=== PATIENT | male | born 1960 | race Caucasian/White ===

== ENCOUNTER 2016-08-13 15:03 | Emergency (ER) | payer OTHER ==
--- NOTE | ~2016-08-13 | EKG ---
PATIENT: ENEDINA VANESSA UNIT #: [id number] Ventricular Rate: 83 BPM Atrial Rate: 83 BPM P-R Interval: 152 ms QRS Duration: 78 ms Q-T Interval: 372 ms QTC Calculation(Bezet): 437 ms P Gilbert: 50 degrees Calculated R Gilbert: 70 degrees Calculated T Gilbert: 52 degrees Diagnosis Line: Normal sinus rhythm Diagnosis Line: Normal ECG Diagnosis Line: When compared with ECG of 29-DEC-2015 19:35, Diagnosis Line: Nonspecific T wave abnormality no longer evident Diagnosis Line: in Inferior leads Diagnosis Line: Confirmed by BOYD SHANKS MD ([id number]) on Diagnosis Line: 08/14/2016 8:01:18 AM INTERPRETING MD: RIMMA RODRIGUEZ
--- NOTE | ~2016-08-13 | CR72 ---
[facility] A Service of [facility] RADIOLOGY TEXT RESULTS PATIENT: ENEDINA VANESSA LOCATION: [facility] : 62 UNIT #: [id number] AGE: [address]: Maryana Bowser MD SEX: M ORDER DR: [id number] [facility]. [place], [place] [address] [id number] E MR#: [id number] Acc #: [id number] NAME: ENEDINA VANESSA : 1960 SEX: M STUDY DATE/TIME: 08/13/2016 17:41 UNIT: [facility] ROOM: STUDY DESCRIPTION: CR Chest Single View Portable Attending Physician: Maryana Bowser M.D. Ordering Physician: Maryana Bowser M.D. MEDICAL IMAGING REPORT This report is preliminary unless electronic signature is present EXAM Frontal chest 08/13/2016 INDICATIONS 56-year-old female with cough, shortness of air and congestion for 2.5 weeks. Long-term tobacco abuse for 30 years. TECHNIQUE 2 frontal chest. COMPARISON STUDIES 01/16/2016. FINDINGS Cardiac silhouette unremarkable. The vascularity is normal. Lungs are clear. No pneumothorax. Minimal atelectasis or scar associated with a minor fissure. IMPRESSION 1. Negative frontal chest. Improved appearance compared 01/16/2016. Dictated by... Jimenez Gaines M.D. THIS IS AN ELECTRONICALLY VERIFIED REPORT Jimenez Gaines M.D. at 08/13/2016 11:39 PM RANDALL/alexandra TD: 08/13/2016 21:36 JOB #: [id number] [facility] A Service [facility] RADIOLOGY TEXT RESULTS PATIENT: ENEDINA VANESSA LOCATION: [facility] : 62 UNIT #: [id number] AGE: [address]: Maryana Bowser MD SEX: M ORDER DR: MEDICAL IMAGING REPORT Page 1 of 1 COPY
[~2016-08-13 15:03] MED LIST: FERROUS GLUCON324 MG PO; NICOTINE TRANSD21 MG EXT; NO MEDICATIONS; ROXICODONE5 MG PO; ZYVOX600 MG PO
== END 2016-08-13 18:23 | disposition home or self-care (01) ==
LOC: CED 15:03
DX: J18.9 Pneumonia, unspecified organism (principal); J20.9 Acute bronchitis, unspecified; F17.210 Nicotine dependence, cigarettes, uncomplicated
CPT/HCPCS: 36415; 71010; 93005; 94640; 99284

== ENCOUNTER 2016-09-28 20:54 | Emergency (ER) | payer OTHER ==
[~2016-09-28] VITALS: Ht 177.8 cm; Wt 68.0 kg
--- NOTE | ~2016-09-28 | CT16 ---
[facility] A Service of [facility] RADIOLOGY TEXT RESULTS PATIENT: ENEDINA VANESSA LOCATION: [facility] : 62 UNIT #: [id number] AGE: [address]: FRANKY SERRATO APRN SEX: M ORDER DR: [id number] [facility] [address] [place], [place] [address] [id number] E MR#: [id number] Acc #: [id number] NAME: ENEDINA VANESSA : 1960 SEX: M STUDY DATE/TIME: 09/29/2016 2:26 UNIT: [facility] ROOM: STUDY DESCRIPTION: CT Angio Chest for PE Attending Physician: Franky Serrato Aprn Ordering Physician: Franky Serrato Aprn Primary Care Physician: No Primary Care Physician MEDICAL IMAGING REPORT This report is preliminary unless electronic signature is present EXAM CT chest with contrast, pulmonary arteriography protocol, 09/29/2016. HISTORY 56-year-old male in the ED complaining of 1-week history of right-side chest and rib pain. He has a history of right-side empyema treated with chest tube drainage December and January 2016. TECHNIQUE CT examination of the chest with IV contrast using pulmonary arteriography protocol. CTA MIP images of the pulmonary arteries were reformatted in multiple planes. This CT exam was performed with one or more of the following radiation dose reduction techniques: automatic exposure control, adjustment of mA and/or kV according to patient size, and iterative reconstruction. COMPARISON CT chest, 12/29/2015. FINDINGS No pulmonary embolism is demonstrated. Thoracic aorta is normal in caliber with no aneurysm or dissection. The heart size is normal and there is no pericardial effusion. The lungs are expanded and clear today. Minimal subpleural pulmonary scarring deep to a healed right lateral sixth rib fracture. No other chest wall abnormality is seen. There is no pleural effusion. Limited upper abdominal images are unremarkable. IMPRESSION 1. No acute abnormality within the chest. No evidence of pulmonary embolism. 2. The lungs are expanded and clear today. No pleural effusion. [facility] A Service of [facility] RADIOLOGY TEXT RESULTS PATIENT: ENEDINA VANESSA LOCATION: [facility] : 62 UNIT #: [id number] AGE: [address]: FRANKY SERRATO APRN SEX: M ORDER DR: 3. Mild subpleural pulmonary scarring in the right lateral mid chest deep to a healed sixth rib fracture. Dictated by... Darren Smiley M.D. THIS IS AN ELECTRONICALLY VERIFIED REPORT Darren Smiley M.D. at 09/29/2016 4:47 PM LONDON/sanam TD: 09/29/2016 12:00 JOB #: [id number] MEDICAL IMAGING REPORT Page 1 of 1 COPY
--- NOTE | ~2016-09-28 | CR63 ---
[facility] A Service of [facility] RADIOLOGY TEXT RESULTS PATIENT: ENEDINA VANESSA LOCATION: [facility] : 62 UNIT #: [id number] AGE: [address]: FRANKY SERRATO APRN SEX: M ORDER DR: [id number] [facility] [address] [place], [place] [address] [id number] E MR#: [id number] Acc #: [id number] NAME: ENEDINA VANESSA : 1960 SEX: M STUDY DATE/TIME: 09/28/2016 23:32 UNIT: [facility] ROOM: STUDY DESCRIPTION: CR Chest 2 View Attending Physician: Franky Serrato Aprn Ordering Physician: Franky Serrato Aprn Primary Care Physician: Primary Care Physician No MEDICAL IMAGING REPORT This report is preliminary unless electronic signature is present EXAM Chest x-ray, 09/28/2016 HISTORY 56-year-old male in the ED complaining of 2-week history of shortness of air and cough. He notes some right rib pain. Right thoracotomy in 2016. TECHNIQUE AP and lateral upright chest series. FINDINGS The exam shows no active disease in the chest. Linear scarring right lateral midlung likely related to the patient's right lung surgery in 2016. The lungs are clear. Mild pleural scarring in the right costophrenic angle. No visible pneumothorax or pleural effusion. Heart size normal. No change since 08/13/2016. IMPRESSION No active disease. Dictated by... Darren Smiley M.D. THIS IS AN ELECTRONICALLY VERIFIED REPORT Darren Smiley M.D. at 09/29/2016 4:46 PM LONDON/jeancarlos TD: 09/29/2016 10:58 JOB #: [id number] MEDICAL IMAGING REPORT Page 1 of 1 COPY
[2016-09-29 00:39] LABS: BASOPHIL# 0.1 X10e3 (0-0.3); BASOPHIL% 0.4 % (0-2.5); EOSINOPHIL# 0.2 X10e3 (0-0.7); EOSINOPHIL% 1.4 % (0.0-7.0); HEMATOCRIT 35.8 % (38.0-50.0); HEMOGLOBIN 11.9 gm/dL (13.0-16.0); LYMPHOCYTE# 2.7 X10e3 (1.0-3.5); LYMPHOCYTE% 21.1 % (17.0-45.0); MEAN CELL VOLUME 79.5 FL (83-96); MEAN CORPUSCULAR HEMOGLOBIN 26.4 PG (28-34); MEAN CORPUSCULAR HGB CONC 33.1 g/dL (30-36); MEAN PLATELET VOLUME 6.4 FL (6.5-11.5); MONOCYTE# 1.2 X10e3 (0-1.0); MONOCYTE% 9.5 % (3.0-12.0); NEUTROPHIL# 8.6 X10e3 (1.5-7.1); NEUTROPHIL% 67.6 % (40-75); PLATELET COUNT 343 X10e3 (140-420); RED CELL DISTRIBUTION WIDTH 14.9 % (11.0-15.5); WHITE BLOOD COUNT 12.7 X10e3 (4.0-10.5)
[2016-09-29 00:40] LABS: DIFF IND NO
[2016-09-29 01:02] LABS: ALBUMIN SERUM 3.3 g/dL (3.5-5.0); BILIRUBIN, DIRECT 0.1 mg/dL (0.0-0.2); BILIRUBIN,INDIRECT 0.2 mg/dL (0.0-0.9); BILIRUBIN,TOTAL 0.3 mg/dL (0.2-2.0); CALCIUM SERUM 8.5 mg/dL (8.4-10.2); CREATININE SERUM 0.8 mg/dL (0.6-1.4); GLOM FILT RATE Estimated 100.6 mL/min (>60); POTASSIUM 3.2 mmol/L (3.5-5.1); PROTEIN TOTAL SERUM 7.4 g/dL (6.0-8.3)
== END 2016-09-29 03:59 | disposition home or self-care (01) ==
LOC: CED 20:54 → CFTX 20:54 → CED 23:10
PROVIDERS: Nurse Practitioner Family
DX: R07.81 Pleurodynia (principal); L03.114 Cellulitis of left upper limb; J06.9 Acute upper respiratory infection, unspecified; F11.10 Opioid abuse, uncomplicated
CPT/HCPCS: 10060; 36415; 71020; 71275; 80048; 80076; 85025; 85379; 94640; 99285; Q9967